=== PATIENT | female | born 2000 | race Caucasian/White ===

== ENCOUNTER → 2025-02-18 | Outpatient (REF) | payer BC ==
[2025-02-18 15:17] LABS: Trichomonas vaginalis (AMP) NOT DETECTED (NEGATIVE)
[2025-02-18 15:41] LABS: GC DNA AMPLIFICATION NEGATIVE (NEGATIVE)
== END ==
LOC: M PLALAB 10:36
PROVIDERS: ATTEND Obstetrics & Gynecology
DX: Z12.4 Encounter for screening for malignant neoplasm of cervix (principal); R35.0 Frequency of micturition
CPT/HCPCS: 87086; 87624; 87661; 87810; 87850; G0123

== ENCOUNTER → 2025-02-26 | Outpatient (REF) | payer BC | LOC: M SFHCWAGY 12:58 | PROVIDERS: ATTEND Physician Assistant | DX: A60.00 Herpesviral infection of urogenital system, unspecified (principal) ==